=== PATIENT | female | born 1955 | race Caucasian/White ===

== ENCOUNTER 2019-05-04 10:27 | Emergency (ER) | payer OTHER ==
[2019-05-04 11:32] VITALS: BP 132/97
--- NOTE | 2019-05-04 12:20 | UC ---
Respiratory Complaint HPI - HPI Summary HPI Summary: 63 y/o female presents to the urgent care c/o sinus congestion and nasal discharge and cough for the past month. She went to the [place] ER and was admitted for 5 days Dx w/ pneumonia on 04/16/2019. Now chest congestion and cough has returned for the past week. She is a heavy everyday smoker and now she thinks she has a COPD exacerbation cine she developed wheezing yesterday. She doen't want to wait until symptoms worsen like last time and she develops pneumonia again. She couldn't sleep well last night due to cough and rib pain w / deep breathing. She also reports Hx of Ri fractures last summer due to her Osteoporosis. She has been doing her nebulizer treatment w/o any improvement. Pt denies fever, SOB, chest pain, abdominal pain, dizziness, chills, COMER, N/V/D. - History of Current Complaint Chief Complaint: UCRespiratory Stated Complaint: SINUS AND CHEST CONGESTION,ASTHMA Time Seen by Provider: 05/04/19 12:11 Hx Obtained From: Patient Onset/Duration: Gradual Onset, Lasting Weeks - 1 month, Still Present, Worse Since - 1 week Timing: Intermittent Episodes Severity Initially: Mild Severity Currently: Moderate Pain Intensity: 6 Pain Scale Used: 0-10 Numeric Character: Cough: Productive, Sputum Description: - yellowish Aggravating Factors: Recumbent Position Alleviating Factors: Bronchodilator Associated Signs And Symptoms: Positive: Wheezing, URI, Nasal Congestion, Sinus Discomfort. Negative: Fever, Chills Related History: Similar Episode/Dx as: - Pneumonia - Risk Factors Pulmonary Embolism Risk Factors: Negative Cardiac Risk Factors: Hypertension, Smoking Pseudomonas Risk Factors: Negative Tuberculosis Risk Factors: Negative - Allergies/Home Medications Allergies/Adverse Reactions: Allergies Allergy/AdvReac Type Severity Reaction Status Date / Time Sulfa (Sulfonamide Allergy Rash Verified 05/04/19 11:15 Antibiotics) environment Allergy Coughing Uncoded 05/04/19 11:15 Home Medications: Home Medications Albuterol/Ipratropium NEB.FLOYD* [Duoneb (Albuterol 2.5 MG/Ipratropium 0.5 MG)] 1 neb INH TID PRN 05/04/19 [History Confirmed 05/04/19] Amlodipine Besylate [Norvasc] 10 mg PO DAILY 05/04/19 [History Confirmed ] Ca Mg Zn D 1 tab PO DAILY 05/04/19 [History] Denosumab [Prolia] 60 mg .SEE ORDER SEE INSTRUCTIONS 05/04/19 [History Confirmed 05/04/19] Ergocalciferol (Vitamin D2) [Vitamin D2] 2,000 unit PO WEEKLY 05/04/19 [History Confirmed 05/04/19] Losartan TAB* [Cozaar TAB*] 100 mg PO DAILY 05/04/19 [History Confirmed 05/04/19 ] Oxycodone TAB(NF) [Oxycodone HCl 10 MG] 10 mg PO TID PRN 05/04/19 [History Confirmed 05/04/19] Pro Air Inhaler 1 - 2 puff INH TID PRN 05/04/19 [History Confirmed 05/04/19] PMH/Surg Hx/FS Hx/Imm Hx Previously Healthy: Yes Endocrine History: Dyslipidemia Other Endocrine History: Osteoporosis Cardiovascular History: Hypertension Respiratory History: COPD - Surgical History Surgical History: Yes - Family History Known Family History: Positive: Hypertension, Diabetes - Social History Occupation: Employed Full-time Lives: With Family Alcohol Use: Rare Substance Use Type: Prescribed Smoking Status (MU): Former Smoker When Did the Patient Quit Smoking/Using Tobacco: 12/2018 Review of Systems All Other Systems Reviewed And Are Negative: Yes Constitutional: Positive: Negative Skin: Positive: Negative Eyes: Positive: Negative ENT: Positive: Nasal Discharge - yellowish, Sinus Congestion, Sinus Pain/ Tenderness, Other - PND Respiratory: Positive: Cough - yellowish sputum, Other - wheezing Cardiovascular: Positive: Negative Gastrointestinal: Positive: Negative Genitourinary: Positive: Negative Motor: Positive: Negative Neurovascular: Positive: Negative Musculoskeletal: Positive: Negative Neurological: Positive: Negative Psychological: Positive: Negative Is Patient Immunocompromised?: No Physical Exam - Summary Physical Exam Summary: Vital Signs Reviewed: Yes General: well developed, well nourished female sitting in the examining table w/ o any apparent distress Eyes: Positive: Conjunctiva Clear - PERRLA, EOMI, fundi grossly normal ENT: Positive: Normal ENT inspection, Hearing grossly normal, Pharynx normal, Nasal congestion - edematous and erythematous nasal mucosa, Nasal drainage - yellowish drainage, TMs normal. Negative: Tonsillar swelling, Tonsillar exudate Neck: Positive: Supple, Nontender, No Lymphadenopathy Respiratory: no orthopnea or dyspnea. Able to speak in full sentences, no retractions or accessory muscle use, no tripod position, stridor, or head bobbing. Positive breath sounds bilaterally. w/ diffuse scattered rhonchi and mild RT posterior upper lung w/ mild wheezing, no crackles or rales Cardiovascular: Positive: RRR, No Murmur, Pulses Normal, Brisk Capillary Refill Abdomen Description: Positive: Nontender, No Organomegaly, Soft. Negative: CVA Tenderness (R), CVA Tenderness (L) Bowel Sounds: Positive: Present Musculoskeletal Exam: Normal Musculoskeletal: Positive: Strength Intact, ROM Intact, No Edema Neurological Exam: Normal Psychological Exam: Normal Skin Exam: Normal Triage Information Reviewed: Yes Vital Signs: Initial Vital Signs Temp 98.4 F 05/04/19 11:23 Pulse 96 05/04/19 11:23 Resp 24 05/04/19 11:23 BP 132/97 05/04/19 11:23 Pulse Ox 99 05/04/19 11:23 Respiratory Course/Dx - Course Course Of Treatment: 63 y/o female presents to the urgent care c/o sinus congestion and nasal discharge and cough for the past month. She went to the [place] ER and was admitted for 5 days Dx w/ pneumonia on 04/16/2019. Now chest congestion and cough has returned for the past week. She is a heavy everyday smoker and now she thinks she has a COPD exacerbation cine she developed wheezing yesterday. She doen't want to wait until symptoms worsen like last time and she develops pneumonia again. She couldn't sleep well last night due to cough and rib pain w / deep breathing. She also reports Hx of Ri fractures last summer due to her Osteoporosis. She has been doing her nebulizer treatment w/o any improvement. Pt denies fever, SOB, chest pain, abdominal pain, dizziness, chills, COMER, N/V/D. Hx obtained. PT is hemodynamically stable, w/ diffuse scattered rhonchi and mild RT posterior upper lung w/ mild wheezing, no crackles or rales on examination. O2Sat: 99%.. Chest X-ray ordered: impression: BONES AND SOFT TISSUES: There are chronic appearing fractures of the right posterior hemithorax. The patient is status post multilevel vertebral augmentation. There is diffuse osteopenia. OTHER: None. IMPRESSION: HYPERINFLATION, CONSISTENT WITH COPD. NO ACTIVE CARDIOPULMONARY DISEASE. Duoneb treatment ordered and given by nurse. Pt tolerated well medications and her lungs improved. Pt states feeling better. Pt will be Tx for COPD exacerbation, Rx Doxycycline PO , Prednisone PO tabs as directed below. Strongly advised to f/u with her PCP for further management in her COPD. She also has elevated BP today, advised to decrease salt in her diet and monitor BP, if it continues to be elevated to f/u with her PCP. Pt understood and agreed with D/C instructions and left the clinic hemodynamically stable. - Differential Dx/Diagnosis Differential Diagnosis/HQI/PQRI: Asthma, Bronchitis, Exacerbation Of COPD, Influenza, Lower Resp Infection, MRSA, Sinusitis, Other - pneumonia Provider Diagnosis: COPD with exacerbation, Uncontrolled hypertension Discharge ED - Sign-Out/Discharge Documenting (check all that apply): Patient Departure - d/c home All imaging exams completed and their final reports reviewed: Yes - Discharge Plan Condition: Stable Disposition: HOME Prescriptions: DOXYcycline CAP(*) [DOXYcycline 100MG CAP(*)] 100 mg PO BID #20 cap predniSONE TAB* [Deltasone 20 MG TAB*] 20 mg PO DAILY #11 tab Patient Education Materials: COPD (Chronic Obstructive Pulmonary Disease) (ED) Referrals: [facility] [place]] - 3 Days Additional Instructions: 1- Take Prednisone PO taper dose as directed. 2-Use the Duoneb nebulizer treatment to alleviate wheezing as directed . Increase fluid intake, rest and eat well. 3- If symptoms do not improve or worsen or your develop SOB with fever and severe wheezing please go immediately to the ER further evaluation and treatment. 4- F/u with your PCP in 3 days or a PCP from and [facility] [place] for further management on your COPD 5- Your BP is elevated today. please decrease salt in your diet, monitor BP and if it continues to be elevated please f/u with your PCP for further management. - Billing Disposition and Condition Condition: STABLE Disposition: Home - Attestation Statements Provider Attestation: Per institutional requirements, I have reviewed the chart, however, I was not consulted specifically or made aware of this patient by the midlevel provider. I did not personally evaluate, interact with , or disposition this patient.
[2019-05-04] MEDS ORDERED: Albuterol/Ipratropium NEB.SOL* Albuterol 2.5 MG/Ipratropium 0.5 MG 3 ML INH ONE (12:30)
== END 2019-05-04 13:35 | disposition home or self-care (01) ==
LOC: UCCORT 10:27
DX: J44.1 Chronic obstructive pulmonary disease with (acute) exacerbation (principal); I10 Essential (primary) hypertension; Z88.2 Allergy status to sulfonamides; Z87.891 Personal history of nicotine dependence
CPT/HCPCS: 71046; 99212; A9270-GY; G0463

== ENCOUNTER 2019-06-02 14:01 | Emergency (ER) | payer MEDICARE, OTHER ==
[2019-06-02 14:56] VITALS: BP 121/86
--- NOTE | 2019-06-02 15:54 | UC ---
Shoulder Pain HPI - HPI Summary HPI Summary: Pt presents with c/o of worsening right upper extremity and shoulder pain. Pt has hx of fracture to humeral head fracture, multiple rib fractures and osteopenia. Pt also has c/o of exacerbation of COPD. Pt states that - History of Current Complaint Chief Complaint: UCGeneralIllness Stated Complaint: CONGESTION Time Seen by Provider: 06/02/19 15:15 Hx Obtained From: Patient ?: No Onset/Duration: Gradual Onset, Lasting Days, Still Present Timing: Constant Severity Initially: Mild Severity Currently: Severe Pain Intensity: 10 Character: Dull, Aching, Stiffness Aggravating Factor(s): Movement, Lifting, Flexion, Extension, Internal Rotation , External Rotation, Abduction Alleviating Factor(s): Nothing Associated Signs And Symptoms: Positive: Weakness Related History: Dominant Hand Right - Risk Factors Non-Orthopedic Risk Factor: Negative DVT Risk Factors: Negative Septic Arthritis Risk Factor: Pre-existing Joint Disease - Allergies/Home Medications Allergies/Adverse Reactions: Allergies Allergy/AdvReac Type Severity Reaction Status Date / Time Sulfa (Sulfonamide Allergy Rash Verified 06/02/19 14:49 Antibiotics) environment Allergy Coughing Uncoded 06/02/19 14:49 PMH/Surg Hx/FS Hx/Imm Hx Previously Healthy: Yes Cardiovascular History: Cardiac Disease, Hypertension Respiratory History: COPD - Surgical History Surgical History: Yes Surgery Procedure, Year, and Place: back - Family History Known Family History: Positive: Hypertension, Diabetes - Social History Occupation: Retired Lives: Alone Alcohol Use: Rare Substance Use Type: Prescribed Smoking Status (MU): Former Smoker Have You Smoked in the Last Year: No When Did the Patient Quit Smoking/Using Tobacco: 12/2018 - Immunization History Vaccination Up to Date: Yes Review of Systems All Other Systems Reviewed And Are Negative: Yes Constitutional: Positive: Fatigue Skin: Positive: Negative Eyes: Positive: Negative ENT: Positive: Sinus Congestion Respiratory: Positive: Shortness Of Breath, Cough Cardiovascular: Positive: Negative Gastrointestinal: Positive: Negative Genitourinary: Positive: Negative Motor: Positive: Decreased ROM, Weakness Musculoskeletal: Positive: Arthralgia, Decreased ROM, Myalgia Neurological: Positive: Negative Psychological: Positive: Negative Is Patient Immunocompromised?: No Physical Exam Triage Information Reviewed: Yes Appearance: Ill-Appearing Vital Signs: Initial Vital Signs Temp 98.6 F 06/02/19 14:50 Pulse 98 06/02/19 14:50 Resp 14 06/02/19 14:50 BP 121/86 06/02/19 14:50 Pulse Ox 95 06/02/19 14:50 Vital Signs Reviewed: Yes Eye Exam: Normal ENT: Positive: Nasal congestion Respiratory: Positive: Decreased breath sounds, Wheezing Cardiovascular Exam: Normal Musculoskeletal: Positive: Strength Limited @ - right upper extremity, ROM Limited @ - right upper extremity Neurological Exam: Normal Psychological Exam: Normal Skin Exam: Normal Diagnostics - Radiology No standard instances Radiology Interpretation Completed By: Radiologist - Rn Clinical Resource: Amos Cisneros ([id number]) Template Fitter: CANDELARIA (NUANCE) Report Date: 2018 16:29:00 Report Status: Final ======= Start of Report Content Patient Name: PAULO GROSSMAN Medical Record#: [id number] Ordering Physician: Flakita Jamison [employer] Acct.#: [id number] : 1955 Age: 64 Sex: F Location: [facility] Exam Date: 06/02/19 1533 ADM Status: REG ER Order Information: SHOULDER RIGHT 2+ VWS Accession Number: [id number] CPT: 70801 INDICATION: Right shoulder injury. COMPARISON: April 30, 2019 right shoulder radiograph TECHNIQUE: 4 views of the right shoulder were obtained. FINDINGS: The bones are osteopenic. There is an old incompletely united fracture extending through the remodeled and partially collapsed humeral head. There is periarticular dystrophic calcification. Acromioclavicular arthropathy is moderate. Mid thoracic spine kyphoplasty cement performed. There are several old right rib fractures. IMPRESSION: 1. Old incompletely united fracture extending through the remodeled and partially collapsed humeral head. A component of avascular necrosis is suspected. 2. Old right rib fractures. 3. Osteopenia with several prior midthoracic kyphoplasties. 4. Moderate acromioclavicular osteoarthropathy <Electronically signed by Amos Cisneros MD in [place]> 06/02/191625 Dictated By: Amos Cisneros MD Dictated Date/Time: 06/02/191621 Transcribed Date/ Time: 06/02/191621 Copy to: CC:Flakita Jamison [employer]; No Primary Care Phys, NOPCP ; Dilan Mccann MD Imaging - [facility] Imaging - [facility] Imaging - [facility] [address] [facility] [address] [address] ph ([phone]) ph ([phone]) ph ([phone]) ==== End of Report Content Shoulder Course/Dx - Differential Dx/Diagnosis Differential Diagnosis/HQI/PQRI: Arthritis, Fracture (Closed), Sprain, Strain, Tendonitis Provider Diagnosis: Avascular necrosis of right humeral head, COPD with exacerbation Discharge ED - Sign-Out/Discharge Documenting (check all that apply): Patient Departure All imaging exams completed and their final reports reviewed: Yes - Discharge Plan Condition: Stable Disposition: HOME Prescriptions: Cetirizine* [ZyrTEC 10 MG TAB*] 10 mg PO BEDTIME #30 tab DOXYcycline CAP(*) [DOXYcycline 100MG CAP(*)] 100 mg PO Q12H #20 cap Fexofenadine (NF) [Valeria (NF)] 60 mg PO DAILY #30 tab guaiFENesin [Mucinex] 600 mg PO Q12HR #14 tab.er.12h predniSONE TAB* [Deltasone 20 MG TAB*] 60 mg PO DAILY #12 tab Patient Education Materials: Acute Bronchitis (ED), Shoulder Pain (ED) Referrals: [facility] [Outside] - If Needed Alli Lucero MD [Medical Doctor] - Sandra Vazquez MD [Medical Doctor] - No Primary Care Phys,NOPCP [Primary Care Provider] - Additional Instructions: Please follow up with an Orthopedic Physician as soon as possible. IMPRESSION: 1. Old incompletely united fracture extending through the remodeled and partially collapsed humeral head. A component of avascular necrosis is suspected. 2. Old right rib fractures. 3. Osteopenia with several prior midthoracic kyphoplasties. 4. Moderate acromioclavicular osteoarthropathy - Billing Disposition and Condition Condition: STABLE Disposition: Home
== END 2019-06-02 16:45 | disposition home or self-care (01) ==
LOC: UCCORT 14:01
DX: M87.821 Other osteonecrosis, right humerus (principal); J44.1 Chronic obstructive pulmonary disease with (acute) exacerbation; M19.011 Primary osteoarthritis, right shoulder; M85.811 Other specified disorders of bone density and structure, right shoulder; Z87.828 Personal history of other (healed) physical injury and trauma
CPT/HCPCS: 99212; G0463

== ENCOUNTER 2019-06-11 13:48 | Emergency (ER) | payer MEDICARE ==
[2019-06-11 14:10] VITALS: BP 134/91
--- NOTE | 2019-06-11 14:24 | UC ---
Upper Extremity HPI - HPI Summary HPI Summary: 64-year-old woman coming in with a chief complaint of right arm and right sided posterior chest and midline thoracic pain after a fall last evening. Patient tripped and fell on a cord at home. Patient has an abrasion on her right elbow area. She complains of pain in the right humerus and elbow. No complaint of any loss of consciousness. Patient is not sure if she is up-to-date on her tetanus but she declines a tetanus shot. No weakness or numbness. - History of Current Complaint Chief Complaint: UCUpperExtremity Stated Complaint: RT ARM INJ Time Seen by Provider: 06/11/19 13:56 Pain Intensity: 8 - Allergies/Home Medications Allergies/Adverse Reactions: Allergies Allergy/AdvReac Type Severity Reaction Status Date / Time Sulfa (Sulfonamide Allergy Rash Verified 06/11/19 14:10 Antibiotics) environment Allergy Coughing Uncoded 06/11/19 14:10 PMH/Surg Hx/FS Hx/Imm Hx - Additional Past Medical History Additional PMH: Prior right-sided rib fractures. Prior right humeral fracture that was found to have necrosis on June 02, 2019 x-ray. Previously Healthy: Yes Cardiovascular History: Hypertension Respiratory History: COPD - Surgical History Surgical History: Yes Surgery Procedure, Year, and Place: back - Family History Known Family History: Positive: Hypertension, Diabetes - Social History Alcohol Use: Rare Substance Use Type: None Smoking Status (MU): Former Smoker Have You Smoked in the Last Year: No When Did the Patient Quit Smoking/Using Tobacco: 12/2018 - Immunization History Vaccination Up to Date: Yes Review of Systems All Other Systems Reviewed And Are Negative: Yes Constitutional: Positive: Negative Skin: Positive: Other - see hpi Eyes: Positive: Negative ENT: Positive: Negative Respiratory: Positive: Negative Cardiovascular: Positive: Other - see hpi Gastrointestinal: Positive: Negative Motor: Positive: Other - see hpi Neurovascular: Positive: Negative Musculoskeletal: Positive: Other: - see hpi Neurological: Positive: Negative Psychological: Positive: Negative Is Patient Immunocompromised?: No Physical Exam Triage Information Reviewed: Yes Appearance: Well-Appearing, Well-Nourished, Pain Distress - mild with rt arm rom and exam Vital Signs: Initial Vital Signs Temp 99.0 F 06/11/19 14:06 Pulse 97 06/11/19 14:06 Resp 16 06/11/19 14:06 BP 134/91 06/11/19 14:06 Pulse Ox 98 06/11/19 14:06 Vital Signs Reviewed: Yes Eye Exam: Normal Eyes: Positive: Conjunctiva Clear Neck: Positive: Supple Respiratory: Positive: Lungs clear, Normal breath sounds, No respiratory distress, Other: - Tender to palpation right lower posterior chest and lower thoracic spine midline. Cardiovascular: Positive: RRR Musculoskeletal: Positive: Other: - Right humerus and shoulder and elbow are all tender to palpation patient minimizes range of motion secondary to pain. Normal radial pulses fingers wrists have full range of motion full-strength normal capillary refill. Neurological: Positive: Alert Psychological: Positive: Age Appropriate Behavior Skin: Positive: Other - Abrasion skin tear right upper arm just proximal to the elbow 4 cm long by 2 and half centimeters wide. Upper Extremity Course/Dx - Course Course Of Treatment: Client Services Analyst: Lux Dempsey C ([id number]) Lithographic Press Operator: CANDELARIA ( CANDELARIA) Report Date: 06/11/2019 15:15:00 Report Status: Final ====== Start of Report Content Patient Name: PAULO GROSSMAN Medical Record#: [id number] Ordering Physician: Dilan Mccann MD Acct.#: [id number] : Age: 64 Sex: F Location: [facility] Exam Date: 06/11/19 1411 ADM Status: REG ER Order Information: THORACIC SPINE 2 S Accession Number : [id number] CPT: 48024 Indication: Chest pain post fall. Rib and humerus fracture 2 years ago. Prior spine fractures. Comparison: May 04, 2019 chest radiograph. Technique: Dual energy PA chest, 3 dedicated RIGHT rib views, and AP and lateral views of the thoracic spine. Report: #. There are multiple old thoracic spine osteoporotic compression fractures with methylmethacrylate at 5 levels including T12, T10, T8, T7, and T6. Additional compression fractures at the T4 and T11 levels are also old. No new fracture of the thoracic spine evident. Unremarkable paraspinal soft tissue contours. #. RIGHT seventh, eighth, and ninth posterior lateral healed rib fractures. No acute RIGHT rib fracture, pulmonary contusion, pleural effusion, or pneumothorax. #. Negative for cardiomegaly. Unremarkable central pulmonary vasculature. Moderately tortuous descending thoracic aorta without change. #. Healed fracture at the surgical neck of the RIGHT humerus and advanced posttraumatic arthropathy at the RIGHT shoulder. Associated loose body at the axillary recess. IMPRESSION: #. Negative for acute fracture of the thoracic spine. Decreased bone density and multiple old thoracic compression fractures and previous vertebroplasty. #. No acute RIGHT rib fracture, pulmonary contusion, pleural effusion, or pneumothorax. <Electronically signed by Lux Dempsey MD in OV> 06/11/19 1511 Dictated By: Lux Dempsey MD Dictated Date/Time: 06/11/19 1500 Transcribed Date/Time: 06/11/19 1500 Copy to: CC:No Primary Care Phys,NOPCP ; Dilan Mccann MD Imaging - [facility] Imaging - [facility] Imaging - [facility] [address] [address] ph [phone]) ph ) ([phone]) End of Report Content Client Services Analyst: Lux Dempsey C, ([id number]) Lithographic Press Operator: CANDELARIA ( CANDELARIA) Report Date: 06/11/2019 15:15:00 Report Status: Final ====== Start of Report Content Patient Name: PAULO GROSSMAN Medical Record#: [id number] Ordering Physician: Dilan Mccann MD Acct.#: [id number] : Age: 64 Sex: F Location: [facility] Exam Date: 06/11/19 141 ADM Status: REG ER Order Information: RIBS RT UNI W/PA CH MIN 3 VWS Accession Number: [id number] CPT: 01737 Indication: Chest pain post fall. Rib and humerus fracture 2 years ago. Prior spine fractures. Comparison: April chest radiograph. Technique: Dual energy PA chest, 3 dedicated RIGHT rib views, and AP and lateral views of the thoracic spine. Report: #. There are multiple old thoracic spine osteoporotic compression fractures with methylmethacrylate at 5 levels including T12, T10, T8, T7, and T6. Additional compression fractures at the T4 and T11 levels are also old. No new fracture of the thoracic spine evident. Unremarkable paraspinal soft tissue contours. #. RIGHT seventh, eighth, and ninth posterior lateral healed rib fractures. No acute RIGHT rib fracture, pulmonary contusion, pleural effusion, or pneumothorax. #. Negative for cardiomegaly. Unremarkable central pulmonary vasculature. Moderately tortuous descending thoracic aorta without change. #. Healed fracture at the surgical neck of the RIGHT humerus and advanced posttraumatic arthropathy at the RIGHT shoulder. Associated loose body at the axillary recess. IMPRESSION: #. Negative for acute fracture of the thoracic spine. Decreased bone density and multiple old thoracic compression fractures and previous vertebroplasty. #. No acute RIGHT rib fracture, pulmonary contusion , pleural effusion, or pneumothorax. <Electronically signed by Lux Dempsey MD in OV> 06/11/19 151 Dictated By: Lux Dempsey MD Dictated Date/Time: 06/11/191499 Transcribed Date/Time: 06/11/191499 Copy to: CC:No Primary Care Phys,NOPCP ; Dilan Mccann MD Imaging - [facility] Imaging [facility] Urgent [facility] [address] [facility] [address] [facility] [address] [facility] [address] ph ([phone]) ph ([phone]) ph ([phone]) End of Report Content Client Services Analyst: Easton Santos Daniel, ([id number]) Lithographic Press Operator: CANDELARIA, ( NUANCE) Report Date: 06/11/2019 15:04:00 Report Status: Final ====== Start of Report Content Patient Name: PAULO GROSSMAN Donato Medical Record#: [id number] Ordering Physician: Dilan Mccann MD Acct.#: [id number] : Age: 64 Sex: F Location: [facility] Exam Date: 06/11/19 1411 ADM Status: REG ER Order Information: HUMERUS RIGHT Accession Number: [id number] CPT: 94425 HISTORY: Pain s/p fall . COMPARISONS: April 30, 2019 VIEWS: 2, Frontal internal rotation and external rotation views of the right humerus FINDINGS: BONE DENSITY: There is diffuse osteopenia. BONES: There is chronic post traumatic changes of the right shoulder, stable. JOINTS: There is osteoarthritis of the right shoulder. ALIGNMENT: There is no dislocation. SOFT TISSUES: Unremarkable. OTHER FINDINGS: None. IMPRESSION: 1. OSTEOARTHRITIS. 2. OSTEOPENIA. 3. REMOTE TRAUMA TO THE RIGHT SHOULDER. 4. NO ACUTE OSSEOUS INJURY. THE DEGREE OF OSTEOPENIA MAY MAKE A NONDISPLACED FRACTURE RADIOGRAPHICALLY OCCULT. IF SYMPTOMS PERSIST, RECOMMEND REPEAT IMAGING. <Electronically signed by Easton Santos MD in OV> 06/11/19 1500 Dictated By: Easton Santos MD Dictated Date /Time: 06/11/191458 Transcribed Date/Time: 06/11/191458 Copy to: CC:No Primary Care Phys,NOPCP ; Dilan Mccann MD Imaging - [facility] Imaging - [place] [facility] Imaging - [facility] [address] [address] ph ([phone]) ph ([phone]) ph ([phone]) End of Report Content Client Services Analyst: Easton Santos Daniel, ([id number]) Lithographic Press Operator: CANDELARIA, ( NUANCE) Report Date: 06/11/2019 15:03:00 Report Status: Final ====== Start of Report Content Patient Name: PAULO GROSSMAN Medical Record#: [id number] Ordering Physician: Dilan Mccann MD Acct.#: [id number] : Age: 64 Sex: F Location: [facility]RG[facility] Exam Date: 06/11/191410 ADM Status: REG ER Order Information: ELBOW RIGHT 3+ VWS Accession Number: [id number] CPT: 50049 HISTORY: Pain s/p fall . COMPARISONS: None relevant available at the time of dictation. VIEWS: 5, Frontal, lateral, and oblique views of the right elbow FINDINGS: BONE DENSITY: There is diffuse osteopenia. BONES: There is no displaced fracture. JOINTS: There is osteoarthritis of the radial-capitellar and ulnar trochlear articulations. There is a small joint effusion. ALIGNMENT: There is no dislocation. SOFT TISSUES: Unremarkable. OTHER FINDINGS: None. IMPRESSION: 1. OSTEOPENIA. 2. OSTEOARTHRITIS. 3. JOINT EFFUSION. 4. WHILE THERE IS NO DISPLACED FRACTURE, THE DEGREE OF OSTEOPENIA MAY MAKE A NONDISPLACED FRACTURE RADIOGRAPHICALLY OCCULT AND THE PRESENCE OF A JOINT EFFUSION GIVEN THE HISTORY OF TRAUMA IS CONCERNING FOR OCCULT FRACTURE. __ <Electronically signed by Easton Santos MD in OV> 06/11/191458 Dictated By: Easton Santos MD Dictated Date/Time: 06/11/191457 Transcribed Date/Time: 06/11/191457 Copy to: CC:No Primary Care Phys,NOPCP ; Dilan Mccann MD Imaging - [facility] Imaging - [facility] [address] [address] ph ([phone]) ph ([phone]) ([phone]) End of Report Content ========= Patient has an appointment with orthopedics in [place] for June 28, 2018 for her necrosis of her proximal right humerus that was found on June 02, 2019 x- ray. I discussed today's x-rays with the patient. With the effusion in the elbow there may be an occult fracture. Patient will be following up with Dr. Peralta orthopedics for this. The abrasion was dressed by nursing here in clinic. Patient declined a tetanus shot. Patient is to get reevaluated if worsening or any questions or concerns. - Differential Dx/Diagnosis Provider Diagnosis: Lower thoracic back pain, Pain of right humerus, Right elbow pain, Abrasion of right upper arm, Rib pain on right side Discharge ED - Sign-Out/Discharge Documenting (check all that apply): Patient Departure All imaging exams completed and their final reports reviewed: Yes - Discharge Plan Condition: Stable Disposition: HOME Patient Education Materials: Elbow Sprain (ED), Abrasion (ED), Skin Tear (ED), Swollen Joint (ED), Shoulder Pain (ED), Thoracic Back Strain (ED) Referrals: [facility] [place] [facility] [Outside] George Peralta MD [Medical Doctor] - Additional Instructions: FOLLOW UP WITH DR PERALTA, ORTHOPEDICS, FOR YOUR RIGHT ELBOW INJURY WITH EFFUSION. GET REEVALUATED SOONER IF NOT IMPROVING OR WORSE OR ANY QUESTIONS OR CONCERNS. - Billing Disposition and Condition Condition: STABLE Disposition: Home
== END 2019-06-11 15:47 | disposition home or self-care (01) ==
LOC: UCCORT 13:48
DX: M54.6 Pain in thoracic spine (principal); M79.621 Pain in right upper arm; S40.811A Abrasion of right upper arm, initial encounter; M25.521 Pain in right elbow; R07.81 Pleurodynia; I10 Essential (primary) hypertension; J44.9 Chronic obstructive pulmonary disease, unspecified; W01.0XXA Fall on same level from slipping, tripping and stumbling without subsequent striking against object, initial encounter; Y92.009 Unspecified place in unspecified non-institutional (private) residence as the place of occurrence of the external cause; Z88.2 Allergy status to sulfonamides; Z91.09 Other allergy status, other than to drugs and biological substances; Z87.891 Personal history of nicotine dependence
CPT/HCPCS: 72070; 99211; G0463

== ENCOUNTER 2019-08-13 17:59 | Emergency (ER) | payer MEDICARE | END 2019-08-13 18:09 | disposition left against medical advice (07) | LOC: UCCORT 17:59 | DX: Z53.21 Procedure and treatment not carried out due to patient leaving prior to being seen by health care provider (principal) ==

== ENCOUNTER 2019-08-14 09:02 | Emergency (ER) | payer MEDICARE ==
[2019-08-14 09:19] VITALS: BP 119/97
--- NOTE | 2019-08-14 10:03 | UC ---
Upper Extremity HPI - HPI Summary HPI Summary: left shoulder pain / right rib pain x 2 days s/p fall at her home 2 days ago , injury to her left shoulder and right lower ribs pain is 8 out 10 , worse with moving her left arm and breathing deep symptoms better with Methadon and rest, worse with movement no SOB , no cough - History of Current Complaint Chief Complaint: UCUpperExtremity Stated Complaint: LEFT ARM INJURY S/P FALL Time Seen by Provider: 08/14/19 09:15 Hx Obtained From: Patient Onset/Duration: Sudden Onset, Lasting Days - 2, Still Present Severity Initially: Severe Severity Currently: Severe Pain Intensity: 8 Location Of Pain: Is Discrete @ - left shoulder / right ribs Aggravating Factor(s): Lifting, Flexion, Extension Alleviating Factor(s): Rest, Other: - Methadone Associated Signs And Symptoms: Positive: Weakness. Negative: Swelling, Redness , Bruising, Numbness/Tingling - Allergies/Home Medications Allergies/Adverse Reactions: Allergies Allergy/AdvReac Type Severity Reaction Status Date / Time Sulfa (Sulfonamide Allergy Rash Verified 08/14/19 09:19 Antibiotics) environment Allergy Coughing Uncoded 08/14/19 09:19 sprays Allergy Difficulty Uncoded 08/14/19 09:19 Breathing Home Medications: Home Medications Methadone HCl 10 mg PO Q12H 08/14/19 [History Confirmed 08/14/19] Naloxone Nasal [place]* [Narcan Nasal [place]] 4 mg NA SEE INSTRUCTIONS 08/14/19 [ History Confirmed 08/14/19] PMH/Surg Hx/FS Hx/Imm Hx - Additional Past Medical History Additional PMH: back, rib fxs, osteoporosis, thoracic aneurysm Cardiovascular History: Hypertension Respiratory History: COPD, Asthma - Surgical History Surgical History: Yes Surgery Procedure, Year, and Place: lower back 2016 - Family History Known Family History: Positive: Hypertension, Diabetes - Social History Alcohol Use: Rare Substance Use Type: None Smoking Status (MU): Former Smoker Have You Smoked in the Last Year: No When Did the Patient Quit Smoking/Using Tobacco: 12/2018 - Immunization History Vaccination Up to Date: Yes Review of Systems All Other Systems Reviewed And Are Negative: Yes Is Patient Immunocompromised?: No Physical Exam Triage Information Reviewed: Yes Appearance: Well-Nourished, Pain Distress Vital Signs: Initial Vital Signs Temp 99 F 08/14/19 09:11 Pulse 96 08/14/19 09:11 Resp 14 08/14/19 09:11 BP 119/97 08/14/19 09:11 Pulse Ox 96 08/14/19 09:11 Vital Signs Reviewed: Yes Eye Exam: Normal Eyes: Positive: Conjunctiva Clear ENT: Positive: Normal ENT inspection, Hearing grossly normal, Pharynx normal Neck: Positive: Supple, Nontender, No Lymphadenopathy Respiratory: Positive: Chest non-tender, Lungs clear, Normal breath sounds, Other: - tenderness right lateral lower ribs Cardiovascular: Positive: RRR, No Murmur, Pulses Normal Abdominal Exam: Normal Abdomen Description: Positive: Nontender, Soft Bowel Sounds: Positive: Present Musculoskeletal: Positive: Other: - left shoulder : no swelling, no bruising, tenderness proximal arm , limited ROM on extension / abduction , limited strength Skin Exam: Normal Diagnostics - Radiology No standard instances Radiology Interpretation Completed By: Radiologist Summary of Radiographic Findings: xray report left shoulder : IMPRESSION: 1. OSTEOPENIA. 2. NONDISPLACED FRACTURE THROUGH THE GREATER TUBEROSITY OF THE HUMERUS. xray report right ribs : IMPRESSION: 1. SUBACUTE FRACTURES OF THE RIGHT LATERAL 10TH AND 11TH RIBS. 2. OLD HEALED FRACTURES OF THE RIGHT POSTERIOR SIXTH THROUGH NINTH RIBS. Upper Extremity Course/Dx - Differential Dx/Diagnosis Provider Diagnosis: Fracture of rib of right side, Fracture of humerus, proximal, closed Discharge ED - Sign-Out/Discharge Documenting (check all that apply): Patient Departure All imaging exams completed and their final reports reviewed: Yes - Discharge Plan Condition: Stable Disposition: HOME Patient Education Materials: Rib Fracture (ED), Proximal Humerus Fracture (ED) Referrals: George Peralta MD [Medical Doctor] - As Soon As Possible No Primary Care Phys,NOPCP [Primary Care Provider] - - Billing Disposition and Condition Condition: STABLE Disposition: Home
== END 2019-08-14 10:17 | disposition home or self-care (01) ==
LOC: UCCORT 09:02
DX: S42.255A Nondisplaced fracture of greater tuberosity of left humerus, initial encounter for closed fracture (principal); S22.41XA Multiple fractures of ribs, right side, initial encounter for closed fracture; M85.812 Other specified disorders of bone density and structure, left shoulder; I10 Essential (primary) hypertension; J44.9 Chronic obstructive pulmonary disease, unspecified; Z88.2 Allergy status to sulfonamides; Z91.09 Other allergy status, other than to drugs and biological substances; Z87.891 Personal history of nicotine dependence; Z87.828 Personal history of other (healed) physical injury and trauma; W19.XXXA Unspecified fall, initial encounter; Y92.009 Unspecified place in unspecified non-institutional (private) residence as the place of occurrence of the external cause
CPT/HCPCS: 99212; G0463

== ENCOUNTER 2019-09-25 19:03 | Emergency (ER) | payer MEDICARE, OTHER ==
--- NOTE | 2019-09-25 19:11 | UC ---
General HPI - HPI Summary HPI Summary: Can't get mucus out - dry cough. Not a significant cough No chest pain or chest pressure. REcent echo not too long ago Subacute rib fracture on right 10th and 11th on last visit 08/14 and also saw old fracture 6-9 ribs - chest tightness since then and difficulty breathing since then. Fell when went to bathroom and broke arm as well. Ever since then can't breath right. Tightness around her since feburary Albuterol inhaler and nebulizer - Ipratropium/Albuterol - 4 times a day. No N/V/D Worse at night. STates she doesn't feel sick just that her left side is so sore. NO chills, no fever Hx of COPD and asthma Former smoker Is supposed to see a lung specialist Sherrill Gloria ENDOSCOPY TECH - History of Current Complaint Stated Complaint: WHEEZING Time Seen by Provider: 09/25/19 19:06 Pain Intensity: 7 - Allergy/Home Medications Allergies/Adverse Reactions: Allergies Allergy/AdvReac Type Severity Reaction Status Date / Time Sulfa (Sulfonamide Allergy Rash Verified 08/14/19 09:19 Antibiotics) environment Allergy Coughing Uncoded 08/14/19 09:19 sprays Allergy Difficulty Uncoded 08/14/19 09:19 Breathing Home Medications: Home Medications Albuterol/Ipratropium NEB.FLOYD* [Duoneb (Albuterol 2.5 MG/Ipratropium 0.5 MG)] 1 neb INH TID PRN 05/04/19 [History Confirmed 09/25/19] Ca Mg Zn D 1 tab PO DAILY 05/04/19 [History Confirmed 09/25/19] Denosumab (OLD DO NOT USE) [Prolia] 60 mg .SEE ORDER SEE INSTRUCTIONS 05/04/19 [ History Confirmed 09/25/19] Ergocalciferol (Vitamin D2) [Vitamin D2] 2,000 unit PO WEEKLY 05/04/19 [History Confirmed 09/25/19] Losartan TAB* [Cozaar TAB*] 100 mg PO DAILY 05/04/19 [History Confirmed 09/25/19 ] Pro Air Inhaler 1 - 2 puff INH TID PRN 05/04/19 [History Confirmed 09/25/19] Methadone HCl 10 mg PO Q12H 08/14/19 [History Confirmed 09/25/19] Naloxone Nasal [place]* [Narcan Nasal [place]] 4 mg NA SEE INSTRUCTIONS 08/14/19 [ History Confirmed 09/25/19] DOXYcycline CAP(*) [DOXYcycline 100MG CAP(*)] 100 mg PO BID #13 cap 09/25/19 [Rx ] predniSONE [Prednisone 20 MG TAB] 20 mg PO DAILY #9 tablet 09/25/19 [Rx] PMH/Surg Hx/FS Hx/Imm Hx Respiratory History: COPD, Asthma - Surgical History Surgical History: Yes Surgery Procedure, Year, and Place: lower back 2016 - Family History Known Family History: Positive: Hypertension, Diabetes - Social History Alcohol Use: Rare Substance Use Type: None Smoking Status (MU): Former Smoker Have You Smoked in the Last Year: No When Did the Patient Quit Smoking/Using Tobacco: 12/2018 - Immunization History Vaccination Up to Date: Yes Review of Systems All Other Systems Reviewed And Are Negative: Yes Constitutional: Positive: Negative ENT: Positive: Nasal Discharge Respiratory: Positive: Shortness Of Breath, Cough Physical Exam Triage Information Reviewed: Yes Appearance: Well-Appearing, Other: - no resp distress ENT: Positive: Pharyngeal erythema Neck: Positive: Supple Respiratory: Positive: Decreased breath sounds, Other: - rhonchi over left lower lung,faint b/l expiratory wheezing Cardiovascular: Positive: RRR, No Murmur Abdomen Description: Positive: Soft Skin Exam: Normal Course/Dx - Course Course Of Treatment: This is a 64 yr old with PMhx of COPD who is cough with soreness on left side where her rib fractures were 6 weeks ago CXR: No significant change, but findings in LLQ Prednisione 40 mg PO given and doxycycline 100 mg given RSV: negative COVID sent Plan Start tomorrow prednisone as prescribed and doxycycline Continue inhalers and nebulizers as your are doing Stay in self quarantine/isolation until we contact you with your COVID results ANy shortness of breath or chest pain, go to the ER REcommend follow up with peeled potato inspector as discussed - Diagnoses Provider Diagnosis: Asthma attack Discharge ED - Sign-Out/Discharge Documenting (check all that apply): Patient Departure All imaging exams completed and their final reports reviewed: No - Discharge Plan Condition: Fair Disposition: HOME Prescriptions: DOXYcycline CAP(*) [DOXYcycline 100MG CAP(*)] 100 mg PO BID #13 cap predniSONE [Prednisone 20 MG TAB] 20 mg PO DAILY #9 tablet Patient Education Materials: Asthma (ED) Forms: COVID-19 Tested & Isolation Referrals: [facility] [place] [facility] [Outside] No Primary Care Phys,NOPCP [Medical Doctor] - Additional Instructions: Start tomorrow prednisone as prescribed and doxycycline Continue inhalers and nebulizers as your are doing Stay in self quarantine/isolation until we contact you with your COVID results ANy shortness of breath or chest pain, go to the ER REcommend follow up with peeled potato inspector as discussed - Billing Disposition and Condition Condition: FAIR Disposition: Home
[2019-09-25 19:35] VITALS: BP 150/106
[2019-09-25] MEDS ORDERED: DOXYcycline CAP(*) 100 MG PO ONE (19:41)
--- NOTE | 2019-09-26 08:07 | UC ---
- Progress Note Progress Note: chest xray report : MPRESSION: HYPERINFLATION, CONSISTENT WITH COPD. NO ACTIVE CARDIOPULMONARY DISEASE. Course/Dx - Diagnoses Provider Diagnoses: Asthma attack Discharge ED - Sign-Out/Discharge Documenting (check all that apply): Patient Departure All imaging exams completed and their final reports reviewed: Yes - Discharge Plan Condition: Fair Disposition: HOME Prescriptions: DOXYcycline CAP(*) [DOXYcycline 100MG CAP(*)] 100 mg PO BID #13 cap predniSONE [Prednisone 20 MG TAB] 20 mg PO DAILY #9 tablet Patient Education Materials: Asthma (ED) Forms: COVID-19 Tested & Isolation Referrals: [facility] [place] [facility] [Outside] No Primary Care Phys,NOPCP [Medical Doctor] - Additional Instructions: RSV negative Continue to self quarantine until we contact you with coronavirus results Start tomorrow prednisone as prescribed and doxycycline Continue inhalers and nebulizers as your are doing Stay in self quarantine/isolation until we contact you with your COVID results ANy shortness of breath or chest pain, go to the ER REcommend follow up with promotions firm accounts manager as discussed - Billing Disposition and Condition Condition: FAIR Disposition: Home
== END 2019-09-25 19:59 | disposition home or self-care (01) ==
LOC: UCCORT 19:03
DX: J45.901 Unspecified asthma with (acute) exacerbation (principal); R05 Cough; Z20.828 Contact with and (suspected) exposure to other viral communicable diseases; S22.41XD Multiple fractures of ribs, right side, subsequent encounter for fracture with routine healing; W18.30XD Fall on same level, unspecified, subsequent encounter; Z88.2 Allergy status to sulfonamides; Z87.891 Personal history of nicotine dependence
CPT/HCPCS: 71046; 87635; 99212; A9270-GY; G0463; J7512

== ENCOUNTER 2019-10-21 13:57 | Emergency (ER) | payer MEDICARE ==
--- NOTE | 2019-10-21 14:50 | UC ---
Respiratory Complaint HPI - HPI Summary HPI Summary: 64 yo woman with COPD c/o increased nasal congestion with increasing cough since yesterday. Some nasal sores. No fevers or sinus pain. H/O allergies as well. - History of Current Complaint Chief Complaint: UCGeneralIllness Stated Complaint: UPPER RESPITORY Hx Obtained From: Patient Onset/Duration: Gradual Onset, Lasting Days - 2, Worse Since - onset Timing: Constant Severity Initially: Mild Severity Currently: Mild Pain Intensity: 0 Character: Cough: Nonproductive Aggravating Factors: Allergens, Deep Breaths, Recumbent Position Alleviating Factors: Bronchodilator Associated Signs And Symptoms: Positive: Chills, Pleuritic Chest Pain - h/o broken ribs on the left side., Nasal Congestion Related History: Seasonal Allergies - Allergies/Home Medications Allergies/Adverse Reactions: Allergies Allergy/AdvReac Type Severity Reaction Status Date / Time Sulfa (Sulfonamide Allergy Rash Verified 10/21/19 14:18 Antibiotics) environment Allergy Coughing Uncoded 10/21/19 14:18 sprays Allergy Difficulty Uncoded 10/21/19 14:18 Breathing Home Medications: Home Medications Albuterol/Ipratropium [email or web address]* [Duoneb (Albuterol 2.5 MG/Ipratropium 0.5 MG)] 1 neb INH TID PRN 05/04/19 [History Confirmed 10/21/19] Ca Mg Zn D 1 tab PO DAILY 05/04/19 [History Confirmed 10/21/19] Denosumab (OLD DO NOT USE) [Prolia] 60 mg .SEE ORDER SEE INSTRUCTIONS 05/04/19 [ History Confirmed 10/21/19] Ergocalciferol (Vitamin D2) [Vitamin D2] 2,000 unit PO WEEKLY 05/04/19 [History Confirmed 10/21/19] Losartan TAB* [Cozaar TAB*] 100 mg PO DAILY 05/04/19 [History Confirmed 10/21/19 ] Pro Air Inhaler 1 - 2 puff INH TID PRN 05/04/19 [History Confirmed 10/21/19] Methadone HCl 10 mg PO Q12H 08/14/19 [History Confirmed 10/21/19] Naloxone Nasal Delta* [Narcan Nasal Delta] 4 mg NA SEE INSTRUCTIONS 08/14/19 [ History Confirmed 10/21/19] Calcium Carbonate [Calcium] 500 mg PO DAILY 10/21/19 [History Confirmed 10/21/19 ] Cefdinir [Cefdinir 300 MG CAP] 300 mg PO BID #20 capsule 10/21/19 [Rx] Multivitamin 1 each PO DAILY 10/21/19 [History Confirmed 10/21/19] predniSONE 20 mg TAB [Deltasone 20 MG TAB*] 60 mg PO DAILY #18 tab 10/21/19 [Rx] PMH/Surg Hx/FS Hx/Imm Hx Cardiovascular History: Hypertension Respiratory History: COPD, Asthma - Surgical History Surgical History: Yes Surgery Procedure, Year, and Place: lower back 2017 - Family History Known Family History: Positive: Cardiac Disease, Hypertension, Diabetes - Social History Occupation: Retired Lives: Alone Alcohol Use: None Substance Use Type: None Smoking Status (MU): Former Smoker Type: Cigarettes Have You Smoked in the Last Year: No When Did the Patient Quit Smoking/Using Tobacco: 12/2018 - Immunization History Vaccination Up to Date: Yes Review of Systems All Other Systems Reviewed And Are Negative: Yes Constitutional: Positive: Chills ENT: Positive: Nasal Discharge Respiratory: Positive: Shortness Of Breath, Cough Cardiovascular: Positive: Chest Pain - left anterior chest pain with coughing where she had previous broken ribs. Physical Exam Triage Information Reviewed: Yes Appearance: Well-Appearing, No Pain Distress, Well-Nourished Vital Signs Reviewed: Yes Eyes: Positive: Conjunctiva Clear ENT: Positive: Pharynx normal, Nasal congestion - with allergic changes, TMs normal Neck exam: Normal Respiratory: Positive: Decreased breath sounds, Wheezing - expiratory wheeze with coughing. Cardiovascular Exam: Normal Musculoskeletal: Positive: Other: - antalgic gait Neurological Exam: Normal Psychological Exam: Normal Skin: Positive: Rashes - papular rash midline lower back. Respiratory Course/Dx - Differential Dx/Diagnosis Differential Diagnosis/HQI/PQRI: Asthma, Exacerbation Of COPD, Lower Resp Infection, Sinusitis Provider Diagnosis: COPD exacerbation, Prickly heat Discharge ED - Sign-Out/Discharge Documenting (check all that apply): Patient Departure All imaging exams completed and their final reports reviewed: No Studies - Discharge Plan Condition: Stable Disposition: HOME Prescriptions: Cefdinir [Cefdinir 300 MG CAP] 300 mg PO BID #20 capsule predniSONE 20 mg TAB [Deltasone 20 MG TAB*] 60 mg PO DAILY #18 tab Patient Education Materials: COPD (Chronic Obstructive Pulmonary Disease) (ED) Referrals: Juani Serrano [Primary Care Provider] - - Billing Disposition and Condition Condition: STABLE Disposition: Home
[2019-10-21 14:56] VITALS: BP 135/95
== END 2019-10-21 15:17 | disposition home or self-care (01) ==
LOC: UCCORT 13:57
DX: J44.1 Chronic obstructive pulmonary disease with (acute) exacerbation (principal); L74.0 Miliaria rubra; I10 Essential (primary) hypertension; Z88.2 Allergy status to sulfonamides; Z87.891 Personal history of nicotine dependence
CPT/HCPCS: 99212; G0463